=== PATIENT | female | born 1945 | race Caucasian/White ===

== ENCOUNTER → 2021-03-15 | Outpatient (CLI) | payer MEDICARE, OTHER ==
[~2021-03-15] MED LIST: OMNICEF 300 MG300 MG PO
== END ==
LOC: CT 07:52
DX: R22.1 Localized swelling, mass and lump, neck (principal)
CPT/HCPCS: 70490

== ENCOUNTER 2021-03-19 12:40 | Emergency (ER) | payer MEDICARE, OTHER ==
[2021-03-19 13:32] LABS: HEMOGLOBIN 12.2 gm/dl (12.3-15.3); RED BLOOD COUNT 4.89 M/UL (4.00-5.10); WHITE BLOOD COUNT 6.6 K/UL (4.5-11.0)
[2021-03-19 14:17] LABS: BUN/CREATININE RATIO 21 (0-10)
[2021-03-19] MEDS ORDERED: OMNICEF 300 MG300 MG PO (21:16)
== END 2021-03-19 21:35 | disposition home or self-care (01) ==
LOC: ER1 12:40
PROVIDERS: Emergency Medicine
DX: R07.9 Chest pain, unspecified (principal); N39.0 Urinary tract infection, site not specified; I50.9 Heart failure, unspecified; K21.9 Gastro-esophageal reflux disease without esophagitis; Z79.01 Long term (current) use of anticoagulants
CPT/HCPCS: 71045; 80053; 81001; 82550; 82553; 83605; 83690; 84484; 85025; 85610; 85730; 93005; 96374; 96375; 99285; J0696; J1200; J2270; J2405; J2930; J7030; Q9967

== ENCOUNTER → 2022-05-21 | Outpatient (CLI) | payer MEDICARE, OTHER | LOC: MRI 08:52 | DX: R41.3 Other amnesia (principal); R51.9 Headache, unspecified; R90.82 White matter disease, unspecified; Z00.00 Encounter for general adult medical examination without abnormal findings; G31.9 Degenerative disease of nervous system, unspecified | CPT/HCPCS: 36415; 70553; 82565; 84520; A9577 ==